=== PATIENT | female | born 1995 | race Caucasian/White ===

== ENCOUNTER 2021-01-14 22:41 | Emergency (ER) | payer OTHER ==
[2021-01-15 00:04] LABS: Urine Blood 3+ (Negative); Urine Glucose Negative (Negative); Urine Protein Negative (Negative)
[2021-01-15] MEDS ORDERED: NA CHLORIDE 0.9% 1,000 ML ONE (00:08)
[2021-01-15 00:15] LABS: Absolute Lymphocytes (CBC) 1.4 K/uL (0.7-4.9); Basophils % 0.5 % (0-1.3); Hematocrit 42.2 % (36.0-45.0); Lymphocytes % 21.2 % (15.3-44.8); MPV 9.5 fL (7.6-11.3); RBC Red Blood Cell Count 4.41 M/uL (3.86-4.86)
[2021-01-15 00:30] LABS: Urine Bacteria <20 /HPF (<20)
[2021-01-15] MEDS ORDERED: ACETAMINOPHEN 500 MG TAB ONE (00:45)
[2021-01-15 00:57] LABS: BUN Blood Urea Nitrogen 11 mg/dL (7-18); Bicarbonate 27 mmol/L (21-32); Glucose Level 87 mg/dL (74-106); HCG, Quantitative 4505 mIU/mL (1-3); Potassium 3.7 mmol/L (3.5-5.1); Sodium Level 141 mmol/L (136-145)
--- NOTE | 2021-01-15 02:19 | ER ---
Nurse's Notes [facility] Name: David Ramirez Age: 25 yrs Sex: Female : 1995 Arrival Date: 01/14/2021 Time: 22:43 Bed 20 Private MD: Diagnosis: Threatened ;Abnormal uterine and vaginal bleeding, unspecified Presentation: 01/14 23:00 Chief complaint: Patient states: she has had some vaginal bleeding the last couple of bb days but tonight she started having cramping with vaginal bleeding. Coronavirus screen: At this time, the client does not indicate any symptoms associated with coronavirus-19. Ebola Screen: No symptoms or risks identified at this time. Initial Sepsis Screen: Does the patient meet any 2 criteria? No. Patient's initial sepsis screen is negative. Does the patient have a suspected source of infection? No. Patient's initial sepsis screen is negative. Risk Assessment: Do you want to hurt yourself or someone else? Patient reports no desire to harm self or others. Onset of symptoms was January 14, 2021. 23:00 Method Of Arrival: Ambulatory bb 23:00 Acuity: JEREMÍAS 3 bb Triage Assessment: 23:02 General: Appears in no apparent distress. slender, Behavior is calm, cooperative. Pain: bb Complains of pain in abdomen Pain currently is 6 out of 10 on a pain scale. Neuro: Level of Consciousness is awake, alert, obeys commands, Oriented to person, place, time, situation. Cardiovascular: Capillary refill < 3 seconds Patient's skin is warm and dry. Respiratory: Respiratory effort is even, unlabored, Respiratory pattern is regular. GI: Reports abdominal cramping. : Reports vaginal bleeding that is. Derm: Skin is dry, Skin is normal, Skin temperature is warm. Musculoskeletal: Circulation, motion, and sensation intact. 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 - Social history:: Smoking status: Patient denies any tobacco usage or history of. Screenin:30 Abuse screen: Denies threats or abuse. Nutritional screening: No deficits noted. jb4 Tuberculosis screening: No symptoms or risk factors identified. Fall Risk None identified. Assessment: 23:30 General: Appears in no apparent distress. comfortable, Behavior is calm, cooperative, jb4 appropriate for age. Pain: Complains of pain in abdomen Pain does not radiate. Pain currently is 6 out of 10 on a pain scale. Quality of pain is described as crampy. Neuro: Level of Consciousness is awake, alert, obeys commands, Oriented to person, place, time, situation. Cardiovascular: Patient's skin is warm and dry. Respiratory: Airway is patent Respiratory effort is even, unlabored, Respiratory pattern is regular, symmetrical. GI: No signs and/or symptoms were reported involving the gastrointestinal system. : No signs and/or symptoms were reported regarding the genitourinary system. EENT: No signs and/or symptoms were reported regarding the EENT system. Derm: Skin is intact, Skin is pink, warm \T\ dry. Musculoskeletal: Circulation, motion, and sensation intact. Range of motion: intact in all extremities. 01/15 00:31 Reassessment: Patient appears in no apparent distress at this time. Patient and/or jb4 family updated on plan of care and expected duration. Pain level reassessed. Patient is alert, oriented x 3, equal unlabored respirations, skin warm/dry/pink. 01:30 Reassessment: Patient appears in no apparent distress at this time. Patient and/or jb4 family updated on plan of care and expected duration. Pain level reassessed. Patient is alert, oriented x 3, equal unlabored respirations, skin warm/dry/pink. 02:38 Reassessment: Patient appears in no apparent distress at this time. Patient and/or jb4 family updated on plan of care and expected duration. Pain level reassessed. Patient is alert, oriented x 3, equal unlabored respirations, skin warm/dry/pink. Vital Signs: 01/14 23:00 BP 131 / 88; Pulse 127; Resp 16 S; Temp 98.5(O); Pulse Ox 98% on R/A; Weight 63.5 kg bb (R); Height 5 ft. 4 in. (162.56 cm) (R); Pain 6/10; 01/15 01:45 BP 122 / 83; Pulse 96; Resp 16; Pulse Ox 100% on R/A; jb4 02:30 BP 139 / 78; Pulse 122; Resp 18; Pulse Ox 100% on R/A; jb4 01/14 23:00 Body Mass Index 24.03 (63.50 kg, 162.56 cm) bb ED Course: 01/14 22:43 Patient arrived in ED. es 23:02 Triage completed. bb 23:02 Arm band placed on Patient placed in waiting room, Patient notified of wait time. bb Family accompanied patient. 23:20 Tavares Tang PA is PHCP. cp 23:20 Desmond Moreno MD is Attending Physician. cp 23:30 Patient has correct armband on for positive identification. Bed in low position. Call jb4 light in reach. Side rails up X 1. Pulse ox on. NIBP on. 23:44 Ricky Palacios, ALEXA is Primary Nurse. jb4 01/15 02:16 Transvaginal OB In Process Unspecified. EDNY 02:41 No provider procedures requiring assistance completed. IV discontinued, intact, jb4 bleeding controlled, No redness/swelling at site. Pressure dressing applied. Administered Medications: 00:00 Drug: NS 0.9% 1000 ml Route: IV; Rate: 1 bolus; Site: right antecubital; jb4 01:00 Follow up: Response: No adverse reaction; IV Status: Completed infusion; IV Intake: jb4 1000ml 00:26 Drug: Tylenol 1000 mg Route: PO; jb4 01:00 Follow up: Response: No adverse reaction; Marked relief of symptoms jb4 Intake: 01:00 IV: 1000ml; Total: 1000ml. jb4 Outcome: 02:18 Discharge ordered by MD. rn 02:41 Discharged to home ambulatory, with family. jb4 02:41 Condition: stable 02:41 Discharge instructions given to patient, Instructed on discharge instructions, follow up and referral plans. Demonstrated understanding of instructions, follow-up care. 02:43 Patient left the ED. jb4 Signatures: Dispatcher [employer] Teagan Irwin Brenda, RN RN bb Desmond Moreno MD MD rn Tavares Tang PA PA cp Bryson, James, RN RN jb4
--- NOTE | 2021-01-15 02:19 | EDPHYS ---
Physician Documentation [facility] Name: David Ramirez Age: 25 yrs Sex: Female : 1995 Arrival Date: 01/14/2021 Time: 22:43 Bed 20 Private MD: ED Physician Desmond Moreno HPI: 01/14 23:45 This 25 yrs old Female presents to ER via Ambulatory with complaints of cp Vaginal Bleeding, + Preg <12wks. 23:45 The patient presents to the emergency department with vaginal bleeding, with clots. The cp estimated gestational age is 7 weeks. 23:45 course: care: private OB physician. cp 23:45 Previous pregnancies: in previous pregnancies patient has had no complications. cp Associated signs and symptoms: Pertinent positives: abdominal pain, vaginal bleeding, Pertinent negatives: chest pain, dysuria, fever. 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 - Social history:: Smoking status: Patient denies any tobacco usage or history of. ROS: 23:50 Constitutional: Negative for body aches, chills, fever, poor PO intake. cp 23:50 Eyes: Negative for injury, pain, redness, and discharge. cp 23:50 ENT: Negative for ear pain, sore throat, difficulty swallowing, difficulty handling secretions. 23:50 Cardiovascular: Negative for chest pain. 23:50 Respiratory: Negative for cough, shortness of breath, wheezing. 23:50 Abdomen/GI: Positive for abdominal cramps, Negative for vomiting, diarrhea, constipation. 23:50 : Positive for vaginal bleeding, Negative for urinary symptoms. 23:50 Neuro: Negative for altered mental status, headache, syncope, weakness. 23:50 All other systems are negative. Exam: 23:55 Constitutional: The patient appears in no acute distress, alert, awake, non-toxic, well cp developed, well nourished, uncomfortable. 23:55 Head/Face: Normocephalic, atraumatic. cp 23:55 Eyes: Periorbital structures: appear normal, Conjunctiva: normal, no exudate, no injection, Sclera: no appreciated abnormality, Lids and lashes: appear normal, bilaterally. 23:55 ENT: External ear(s): are unremarkable, Nose: is normal, Mouth: Lips: moist, Oral mucosa: moist, Posterior pharynx: Airway: no evidence of obstruction, patent. 23:55 Chest/axilla: Inspection: normal. 23:55 Cardiovascular: Rate: tachycardic, Rhythm: regular. 23:55 Respiratory: the patient does not display signs of respiratory distress, Respirations: normal, no use of accessory muscles, no retractions, labored breathing, is not present. 23:55 Abdomen/GI: Inspection: abdomen appears normal, Palpation: soft, in all quadrants, mild abdominal tenderness, in the right lower quadrant and left lower quadrant, rebound tenderness, is not appreciated, involuntary guarding, is not appreciated. 23:55 Back: CVA tenderness, is absent. 23:55 Neuro: Orientation: to person, place \T\ time. Mentation: is normal. Vital Signs: 23:00 BP 131 / 88; Pulse 127; Resp 16 S; Temp 98.5(O); Pulse Ox 98% on R/A; Weight 63.5 kg bb (R); Height 5 ft. 4 in. (162.56 cm) (R); Pain 6/10; 01/15 01:45 BP 122 / 83; Pulse 96; Resp 16; Pulse Ox 100% on R/A; jb4 02:30 BP 139 / 78; Pulse 122; Resp 18; Pulse Ox 100% on R/A; jb4 01/14 23:00 Body Mass Index 24.03 (63.50 kg, 162.56 cm) bb MDM: 01/14 23:28 Patient medically screened. cp 01/15 00:00 Differential diagnosis: STD, ectopic . cp 01:45 Transition of care: After a detail discussion of the patient's case, care is cp transferred to Desmond Moreno MD. 02:14 Data reviewed: vital signs, nurses notes, lab test result(s), radiologic studies, rn ultrasound, and as a result, I will discharge patient. Counseling: I had a detailed discussion with the patient and/or guardian regarding: the historical points, exam findings, and any diagnostic results supporting the discharge/admit diagnosis, lab results, radiology results, the need for outpatient follow up, to return to the emergency department if symptoms worsen or persist or if there are any questions or concerns that arise at home. Special discussion: I discussed with the patient/guardian in detail that at this point there is no indication for admission to the hospital. It is understood, however, that if the symptoms persist or worsen the patient needs to return immediately for re-evaluation. Based on the history and exam findings, there is no indication for further emergent testing or inpatient evaluation. I discussed with the patient/guardian the need to see the OB Gyne specialist for further evaluation of the symptoms. ED course: Per U/S, u/s shows likely in middle of , sees tissue or collection towards lower uterus/cervix. Normal H/H, will dc home with expectant management and pelvic rest, with OB f/u for repeat beta hcg and ultrasound. . 01/14 23:21 Order name: Abo/rh Typing 01/14 23:21 Order name: Basic Metabolic Panel; Complete Time: 01:17 01/14 23:21 Order name: CBC with Diff; Complete Time: 00:56 01/15 00:56 Interpretation: Reviewed. 01/14 23:21 Order name: Quantitative Hcg; Complete Time: 01:17 01/15 01:17 Interpretation: HCGQ 4505; Reviewed. 01/14 23:21 Order name: Urine Microscopic Only; Complete Time: 00:56 01/15 00:56 Interpretation: Normal except: URBC 5-10. 01/14 23:22 Order name: ABO/RH typing; Complete Time: 00:56 EDNH 01/14 23:21 Order name: IV Saline Lock; Complete Time: 00:05 cp 01/15 00:04 Order name: Urine Dipstick-Ancillary; Complete Time: 00:56 EDMS 01/15 00:56 Interpretation: Normal except: UBLD 3+. 01/15 00:07 Order name: Urine --Ancillary (enter results); Complete Time: 02:14 ar5 01/15 00:10 Order name: Urine Dipstick-Ancillary [facility] 01/15 01:58 Order name: Transvaginal OB EDNH 01/14 23:21 Order name: Labs collected and sent; Complete Time: 00:05 cp 01/14 23:21 Order name: NPO; Complete Time: 23:45 cp 01/14 23:21 Order name: Urine Dipstick-Ancillary (obtain specimen); Complete Time: 00:04 cp 01/14 23:21 Order name: Urine Test (obtain specimen); Complete Time: 00:04 cp Administered Medications: 00:00 Drug: NS 0.9% 1000 ml Route: IV; Rate: 1 bolus; Site: right antecubital; jb4 01:00 Follow up: Response: No adverse reaction; IV Status: Completed infusion; IV Intake: jb4 1000ml 00:26 Drug: Tylenol 1000 mg Route: PO; jb4 01:00 Follow up: Response: No adverse reaction; Marked relief of symptoms jb4 Disposition: 04:06 Co-signature as Attending Physician, Desmond Moreno MD. rn Disposition: 01/15/21 02:18 Discharged to Home. Impression: Threatened , Abnormal uterine and vaginal bleeding, unspecified. - Condition is Stable. - Discharge Instructions: Threatened Miscarriage, Vaginal Bleeding During , First Trimester, Pelvic Rest. - Medication Reconciliation Form, Thank You Letter, Antibiotic Education, Prescription Opioid Use form. - Follow up: Private Physician; When: 48 Hours; Reason: Recheck today's complaints, Re-evaluation by your physician. - Problem is new. - Symptoms have improved. Signatures: Dispatcher [facility] Radha Loja RN RN bb Nieto, Roman, MD MD rn Page, Corey, PA PA cp Bryson, James, RN RN jb4 Corrections: (The following items were deleted from the chart) 01:58 01/14 22:54 OB Limited+US.RAD.BRZ ordered. [facility] 01/15 02:43 02:18 01/15/2021 02:18 Discharged to Home. Impression: Threatened ; Abnormal jb4 uterine and vaginal bleeding, unspecified. Condition is Stable. Forms are Medication Reconciliation Form, Thank You Letter, Antibiotic Education, Prescription Opioid Use. Follow up: Private Physician; When: 48 Hours; Reason: Recheck today's complaints, Re-evaluation by your physician. Problem is new. Symptoms have improved. rn
[2021-01-15 02:50] VITALS: TEMP 98.5
[2021-01-15 02:51] VITALS: O2SAT 100
[2021-01-15 02:53] VITALS: BP 139/78
--- NOTE | 2021-01-15 06:48 | RAD REPORT ---
EXAM DESCRIPTION: US - Transvaginal OB - 01/15/2021 2:16 am CLINICAL HISTORY: with vaginal bleeding COMPARISON: None. FINDINGS: The uterus measures 9 x 4 x 5 centimeters. The endometrial stripe measures 1.7 centimeter s and is heterogeneous. Gestational sac is not seen. Ovaries are normal in size and echotexture. The right and left adnexal are unremarkable No significant free fluid IMPRESSION: Thickened and heterogeneous endometrial stripe most likely an incomplete . An early IUP in which the gestational sac is not seen can have this appearance. A less likely conside ration is that this represents an ectopic .. This all should be correlated clinically and wi th serial beta HCG levels. Followup endovaginal sonogram in 1 week recommended
== END 2021-01-15 02:43 | disposition home or self-care (01) ==
LOC: ER 22:41
DX: O20.0 Threatened abortion (principal); Z3A.01 Less than 8 weeks gestation of pregnancy
CPT/HCPCS: 36415; 76817; 80048; 81003; 81015; 81025; 84702; 85025; 86900; 86901